=== PATIENT | male | born 1960 | race African-American/Black ===

== ENCOUNTER 2016-10-12 13:33 | Emergency (ER) | payer OTHER ==
[~2016-10-12] VITALS: Ht 185.4 cm; Wt 79.0 kg
[2016-10-12] MEDS ORDERED: SODIUM CHLORIDE 0.9% 1,000 ML IV ONE ×2 (14:26→14:43)
[2016-10-12 15:18] LABS: BASOPHILS % 0.4 % (0.0-2.0); EOSINOPHILS % 2.1 % (0.0-5.0); HEMATOCRIT. 37.6 % (42.0-52.0); HEMOGLOBIN. 12.5 g/dL (14.0-18.0); LYMPHOCYTES % 35.8 % (20.0-50.0); MEAN CORPUSCULAR HEMOGLOBIN 30.3 pg (28.0-32.0); MEAN CORPUSCULAR HGB CONC 33.1 g/dL (31.0-37.0); MEAN CORPUSCULAR VOLUME 91.3 fL (80.0-94.0); MEAN PLATELET VOLUME 7.8 fl (7.4-10.4); MONOCYTES % 9.4 % (2.0-8.0); NEUTROPHILS % 52.3 % (40.0-76.0); PLATELET 213 x1000/uL (130-400); RED BLOOD CELL COUNT 4.12 mill/uL (4.7-6.1); RED CELL DISTRIBUTION WIDTH 14.8 % (11.6-14.6); WHITE BLOOD COUNT 4.9 x1000/uL (4.5-11.0)
[2016-10-12 15:21] LABS: CHLORIDE 104 mEq/L (98-107); INDEX HEMOLYSI 1 (1-3); INDEX ICTERIC 1 (1-4); INDEX LIPEMIC 1 (1-3)
[2016-10-12 15:30] LABS: ACETAMINOPHEN < 2 ug/mL (10-30); ALANINE AMINOTRANSFERASE 35 IU/L (13-61); ALBUMIN 3.2 g/dL (3.4-5.0); ANION GAP 10; CALCIUM 8.7 mg/dL (8.5-10.1); CARBON DIOXIDE 29 mEq/L (21-32); ETHANOL BLOOD < 10 mg/dL; UREA NITROGEN BLOOD 15 mg/dL (7-21); eGFR > 60 mL/min (>60)
[2016-10-12 18:33] VITALS: BP 118/73
== END 2016-10-12 18:42 | disposition home or self-care (01) ==
LOC: ER 14:00
DX: F14.10 Cocaine abuse, uncomplicated (principal); J18.9 Pneumonia, unspecified organism; J44.9 Chronic obstructive pulmonary disease, unspecified; F12.10 Cannabis abuse, uncomplicated; F17.200 Nicotine dependence, unspecified, uncomplicated
CPT/HCPCS: 36415; 71010; 73502; 80053; 80307; 80329; 83605; 85025; 87040; 93005; 96360; 99285; G0482; Z7610; J7030

== ENCOUNTER 2022-01-24 12:37 | Emergency (ER) | payer MEDICAID, OTHER ==
[~2022-01-24] VITALS: Ht 188 cm; Wt 100.0 kg
[2022-01-24 12:39] VITALS: BP 101/63
[2022-01-24] MEDS ORDERED: ACETAMINOPHEN 325MG TABLET PO STA (13:01)
[2022-01-24] MEDS ORDERED: SODIUM CHLORIDE 0.9% 1,000 ML IV ONE (13:15)
[2022-01-24 13:50] LABS: HEMOGLOBIN. 7.2 g/dL (14.0-18.0); MEAN CORPUSCULAR HEMOGLOBIN 29.8 pg (28.0-32.0); MEAN CORPUSCULAR VOLUME 91.5 fL (80.0-94.0); PLATELET 93 x1000/uL (130-400)
[2022-01-24 13:55] LABS: CHLORIDE 100 mEq/L (98-107)
[2022-01-24 14:05] LABS: ETHANOL BLOOD < 10 mg/dL
[2022-01-24 14:34] LABS: PLATELET ESTIMATE DECREASED
== END 2022-01-24 15:15 | disposition home or self-care (01) ==
LOC: ER 12:37
DX: D61.818 Other pancytopenia (principal); F10.229 Alcohol dependence with intoxication, unspecified; J44.9 Chronic obstructive pulmonary disease, unspecified; F12.10 Cannabis abuse, uncomplicated; Y90.0 Blood alcohol level of less than 20 mg/100 ml
CPT/HCPCS: 36415; 71045; 80053; 80320; 83605; 85025; 93005; 96360; 99285; J7030; G0480

== ENCOUNTER 2024-12-05 08:58 | Emergency (ER) | payer MEDICAID ==
[~2024-12-05] VITALS: Ht 175.3 cm; Wt 68.0 kg
[2024-12-05 09:03] VITALS: O2SAT 96
[2024-12-05 12:11] VITALS: TEMP 36.3
[2024-12-05 12:53] LABS: CLARITY URINE CLEAR (CLEAR); COLOR URINE YELLOW (YELLOW); GLUCOSE URINE NEGATIVE (NEGATIVE); KETONES URINE NEGATIVE (NEGATIVE); LEUKOCYTE ESTERASE URINE NEGATIVE (NEGATIVE); NITRITE URINE NEGATIVE (NEGATIVE); OCCULT BLOOD URINE NEGATIVE (NEGATIVE); PH URINE 7.0 (4.5-8.0); PROTEIN URINE NEGATIVE (NEGATIVE); SPECIFIC GRAVITY URINE 1.006 (1.005-1.030); UROBILINOGEN URINE 1.0 E.U./dL (0.2-1.0)
[2024-12-05 14:21] VITALS: BP 142/85; PULSE 70; RESP 16; O2SAT 99
== END 2024-12-05 14:26 | disposition home or self-care (01) ==
LOC: ER 08:58
DX: R31.9 Hematuria, unspecified (principal); I10 Essential (primary) hypertension; J44.9 Chronic obstructive pulmonary disease, unspecified
CPT/HCPCS: 81003; 99284

== ENCOUNTER 2025-02-07 02:19 | Emergency (ER) | payer MEDICAID ==
[~2025-02-07] VITALS: Ht 185.4 cm; Wt 78.0 kg
[~2025-02-07 02:19] MED LIST: SULF1TAB48 MT
[2025-02-07 02:26] VITALS: O2SAT 96
[2025-02-07] MEDS ORDERED: NAPR-1176 MT (04:12)
[2025-02-07] MEDS: KETOROLAC 15MG/ML VIAL IM ONE (04:44)
[2025-02-07 04:45] VITALS: BP 109/69; PULSE 76; RESP 15; TEMP 36.8; O2SAT 98
[2025-02-07] MEDS: LIDOCAINE 5% PATCH TOP SCH (04:45)
== END 2025-02-07 04:50 | disposition home or self-care (01) ==
LOC: ER 02:19
DX: G89.29 Other chronic pain (principal); M54.9 Dorsalgia, unspecified; J44.9 Chronic obstructive pulmonary disease, unspecified; I10 Essential (primary) hypertension; Z98.890 Other specified postprocedural states
CPT/HCPCS: 99283; 96372; J1885

== ENCOUNTER 2025-02-07 11:28 | Emergency (ER) | payer MEDICAID ==
[~2025-02-07] VITALS: Ht 185.4 cm; Wt 85.0 kg
[~2025-02-07 11:28] MED LIST changes: +NAPR-1176 MT
[2025-02-07 11:31] VITALS: O2SAT 98
[2025-02-07 11:43] VITALS: PULSE 71; RESP 16; TEMP 36.9; O2SAT 98
== END 2025-02-07 13:35 | disposition home or self-care (01) ==
LOC: ER 11:28
DX: Z00.00 Encounter for general adult medical examination without abnormal findings (principal); F10.20 Alcohol dependence, uncomplicated; I10 Essential (primary) hypertension; J44.9 Chronic obstructive pulmonary disease, unspecified; Z98.890 Other specified postprocedural states; Z59.00 Homelessness unspecified
CPT/HCPCS: 99284